=== PATIENT | male | born 1980 | race Hispanic/Latino ===

== ENCOUNTER 2022-04-11 15:52 | Emergency (ER) | payer BC ==
[~2022-04-11] VITALS: Ht 182.9 cm; Wt 133.8 kg
[2022-04-11 20:35] LABS: BASOPHILS % (AUTO) 0.4 % (0.0-5.0); EOSINOPHILS % (AUTO) 4.3 % (0.0-8.0); HEMATOCRIT 44.5 % (42-54); LYMPHOCYTES % (AUTO) 23.6 % (21.0-51.0); MEAN CORPUSCULAR HEMOGLOBIN 30.7 pg (27.0-33.0); MEAN CORPUSCULAR HGB CONC 36.4 g/dL (32.0-36.0); MEAN CORPUSCULAR VOLUME 84.3 fL (79-99); MONOCYTES % (AUTO) 7.3 % (3.0-13.0); NEUTROPHILS % (AUTO) 64.2 % (40.0-77.0); PLATELET COUNT (AUTO) 171 K/uL (130-400); RED BLOOD CELL COUNT(AUTO) 5.28 MIL/uL (4.50-6.20); RED CELL DISTRIBUTION WIDTH 12.7 % (11.0-15.5); WHITE BLOOD COUNT (AUTO) 9.7 K/uL (4.8-10.8)
[2022-04-11 20:46] LABS: CREATININE 1.6 mg/dL (0.5-1.5); POTASSIUM 3.9 mmol/L (3.5-5.1)
[2022-04-11 20:48] LABS: INR 0.94 (0.85-1.15); PROTHROMBIN TIME 10.3 SEC (9.6-11.6)
[2022-04-11 20:49] LABS: PARTIAL THROMBOPLASTIN TIME 28.8 SEC (26.3-35.5)
[2022-04-11 20:51] LABS: ALBUMIN 3.2 g/dL (3.5-5.0); TOTAL PROTEIN, SERUM 7.7 g/dL (6.0-8.3)
[2022-04-11 21:46] VITALS: BP 148/94
[2022-04-11 21:51] LABS: APPEARANCE,URINE CLEAR (CLEAR); BILIRUBIN,URINE NEGATIVE (NEGATIVE); COLOR,URINE YELLOW (YELLOW); GLUCOSE, URINE (UA) >=1000 mg/dL (NEGATIVE); KETONES,URINE NEGATIVE (NEGATIVE); LEUKOCYTE ESTERASE ,URINE NEGATIVE Leu/uL (NEGATIVE); NITRATE,URINE NEGATIVE (NEGATIVE); OCCULT BLOOD,URINE LARGE (NEGATIVE); PROTEIN,URINE 300 mg/dL (NEGATIVE); UROBILINOGEN,URINE 0.2 mg/dL (0.2-1.0)
[2022-04-11 21:53] LABS: BACTERIA,URINE RARE /HPF (None Seen); MUCUS,URINE RARE LPF (None Seen); OTHER CASTS, URINE 4 /LPF (None Seen)
== END 2022-04-11 21:47 | disposition home or self-care (01) ==
LOC: EDH 15:52
DX: R60.0 Localized edema (principal); E11.65 Type 2 diabetes mellitus with hyperglycemia; E86.0 Dehydration
CPT/HCPCS: 36415; 73080; 80053; 81001; 85025; 85610; 85730; 93971

== ENCOUNTER → 2022-06-20 | Outpatient (CLI) | payer BC | END | disposition home or self-care (01) | LOC: RAH 07:59 | PROVIDERS: ATTEND Nurse Practitioner Family | DX: M25.422 Effusion, left elbow (principal); M25.522 Pain in left elbow | CPT/HCPCS: 73221 ==

== ENCOUNTER 2025-05-19 10:06 | Emergency (ER) | payer BC ==
[~2025-05-19] VITALS: Ht 182.9 cm; Wt 129.0 kg
[2025-05-19 10:08] VITALS: TEMP 98.5
--- NOTE | 2025-05-19 10:15 | ERN ---
ED Note History of Present Illness Stated Complaint: LEFT HAND NUMBNESS X 2 DAYS Chief Complaint: Hand Problem/Injury Time Seen by MD: 10:10 Dictation: PATIENT IS A 44-YEAR-OLD MALE HERE WITH COMPLAINTS OF RIGHT HAND PAIN WITH NUMBNESS AND TINGLING ONSET SEVERAL DAYS PRIOR TO ARRIVAL. HE DENIES ANY TRAUMA HE DOES CURRENTLY HAVE AN [id number] BRACE IN PLACE. SAW HIS PRIMARY CARE DOCTOR, DR. RAH BARKLEY WHO REFERRED HIM TO THE EMERGENCY ROOM WITHOUT IMAGING FOR WORKUP. NEUROVASCULAR CMS INTACT. Allergies: Coded Allergies: No Known Allergies (Unverified Allergy, Unknown, 04/11/22) Past Medical History Past Medical History: Diabetes-Type II Surgical History: None Social History: ETOH RN Note Reviewed/Agreed w/PFSH: Yes Review of System Dictation CONSTITUTIONAL: NEGATIVE EXCEPT FOR HPI HEAD/FACE: NEGATIVE EXCEPT FOR HPI EENT: NEGATIVE EXCEPT FOR HPI RESPIRATORY: NEGATIVE EXCEPT FOR HPI GASTROINTESTINAL/ABDOMINAL: NEGATIVE EXCEPT FOR HPI GENITOURINARY: NEGATIVE EXCEPT FOR HPI MUSCULOSKELETAL: NEGATIVE EXCEPT FOR HPI RIGHT HAND PAIN WITH NUMBNESS AND TINGLING INTEGUMENTARY: NEGATIVE EXCEPT FOR HPI NEUROLOGICAL/PSYCH: NEGATIVE EXCEPT FOR HPI HEMATOLOGIC/LYMPHATIC: NEGATIVE EXCEPT FOR HPI ALL SYSTEMS NEGATIVE, EXCEPT NOTED ABOVE. 13 POINT REVIEW OF SYSTEMS ASSESSED AND ALL NEGATIVE EXCEPT FOR ABOVE. Initial Vital Sign VS Vital Signs Date Time Temp Pulse Resp B/P (MAP) Pulse Ox O2 Delivery O2 Flow Rate FiO2 05/19/25 10:08 98.4 92 16 158/91 99 Room Air 0 Physical Exam Dictation VITAL SIGNS REVIEWED GENERAL APPEARANCE: ALERT, ORIENTED X 3, MILD ACUTE DISTRESS, WELL DEVELOPED, NOURISHED. HEAD AND FACE: NON-TRAUMATIC. EYES: PERRL, PINK CONJUNCTIVAS, EYELID NO TRAUMA, ANTERIOR CHAMBER WITH ARCUS SENILIS. EARS: PINNAS INTACT AND NO SIGNS OF TRAUMA OR ERYTHEMA EAR CANALS CLEAR AND NO DISCHARGE TM NO ERYTHEMA NOSE: NO DISCHARGE, NO BLEEDING. OROPHARYNX: MOUTH NORMAL, TONGUE PINK, PHARYNX CLEAR,NO ERYTHEMA, TONSILS NO EXUDATES, NO ABSCESSES NOTED, MUCOUS MEMBRANE MOIST NECK: SUPPLE, NON-TENDER, NO THYROMEGALY, NO MASSES, NO JVD, NO BRUITS BREAST:DEFERRED CHEST:NO TENDERNESS, NO CREPITUS, NO PARADOXICAL MOVEMENT, NO RETRACTIONS LUNGS:CLEAR, WELL-VENTILATED, SYMMETRIC, NO RALES, NO WHEEZING, NO RHONCHI, NO STRIDOR, GOOD BREATH SOUNDS BILATERALLY HEART: REGULAR RATE, REGULAR RHYTHM, NO MURMUR, NO GALLOPS VASCULAR: NO PERIPHERAL EDEMA, ABDOMEN: SOFT, POSITIVE BOWEL SOUNDS, NONDISTENDED, NO GUARDING, NONTENDER, NO REBOUND, NO MASSES NO HEPATOMEGALY, NO SPLENOMEGALY, NO COLEY'S SIGN, NO HERNIAS. RECTAL: DEFERRED GENITAL: DEFERRED NEUROLOGICAL: NORMAL SPEECH, MOTOR FUNCTION INTACT, SENSORY FUNCTION INTACT MUSCULOSKELETAL: NECK NONTENDER, FULL RANGE OF MOTION, BACK NONTENDER, FULL RANGE OF MOTION, EXTREMITIES: TENDERNESS TO RIGHT HAND DIFFUSELY. SKIN IS INTACT NO ERYTHEMA NO SWELLING. BRACE IN PLACE [id number] SKIN: COLOR PINK, DRY, NO TURGOR, NO RASH, NO LACERATIONS, NO ABRASIONS, NO CONTUSIONS. LYMPHATIC: DEFERRED Results (Laboratory/Radiology) Laboratory/Radiology XAM: CR right Hand, 3 View. CLINICAL HISTORY: RIGHT HAND PAIN SWELLING FOR SEVERAL DAYS. NO TRAUMA COMPARISON: None provided. FINDINGS: BONES: No acute fracture or aggressive appearing osseous lesion. JOINTS: No evidence of dislocation. The joint spaces are normal. SOFT TISSUES: The soft tissues appear within normal limits. No radiopaque foreign body is seen. IMPRESSION: No acute pathology evident. No acute fracture or dislocation. /[facility] Reviewed?: Yes ED Course ED Course Orders Procedure Category Date Status Time Hand 3+Vws Rt RAD 05/19/25 Resulted 10:12 Ibuprofen 800 Mg Tab PHA 05/19/25 Complete (Motrin) 10:30 Current Medications Medications (Trade) Dose Ordered Sig/Marcelo Route PRN Reason Start Time Stop Time Status Last Admin Dose Admin Ibuprofen (moTRIN) 800 mg ONCE ONCE PO 05/19/25 10:30 05/19/25 10:31 DC Vital Signs Date Time Temp Pulse Resp B/P (MAP) Pulse Ox O2 Delivery O2 Flow Rate FiO2 05/19/25 10:08 98.4 92 16 158/91 99 Room Air 0 1128/RIGHT HAND X-RAY NEGATIVE PATIENT DISCHARGED HOME WITH IBUPROFEN TOLD TO CONTINUE HIS BRACE FOLLOW UP WITH DR. CHELSEY FARFAN, ORTHOPEDICS. Medical Decision Making MDM MEDICAL DECISION-MAKING BASED ON EMPIRIC TREATMENT FOR PAIN X-RAY OF RIGHT HAND NEGATIVE DIAGNOSIS WE WILL BE RIGHT HAND PAIN PATIENT TOLD TO CONTINUE HIS [id number] HAND BRACE TAKE IBUPROFEN NEEDED FOR PAIN NO WORK OR LIFTING WITH RIGHT HAND UNTIL CLEARED BY ORTHOPEDICS, CALL FOR AN APPOINTMENT DX & DISP Disposition: Discharge Departure Impression: Primary Impression: Arthralgia of hand, right Condition: Stable Scripts Ibuprofen (Ibuprofen 800 mg Tab) 800 Mg Tab 800 MG PO Q8H PRN for fever or pain, #30 TAB 0 Refills Prov: DEBRA PARISH 05/19/25 Additional Instructions: FOLLOW-UP WITH PRIMARY CARE PROVIDER IN 1 TO 2 DAYS. TAKE MEDICATIONS DIRECTED HERE IN THE EMERGENCY ROOM. OKAY TO CONTINUE HOME MEDICATIONS UNLESS OTHERWISE DISCUSSED DURING YOUR VISIT IN THE EMERGENCY ROOM TODAY. RETURN TO YOUR NEAREST EMERGENCY ROOM IF SYMPTOMS WORSEN OR IF THERE IS NO IMPROVEMENT. CALL 911 IF YOU NEED IMMEDIATE ASSISTANCE. TAKE TYLENOL OR MOTRIN [id number] NEEDED AND IF NO CONTRAINDICATIONS ARE PRESENT. INCREASE ORAL HYDRATION. A WOUND CULTURE OR URINE CULTURE WAS ORDERED HERE IN THE EMERGENCY ROOM DEPARTMENT PLEASE FOLLOW-UP WITH PRIMARY CARE PROVIDER AND ADVISE THEM TO GET REPEAT PORTS FROM OUR FACILITY. IF YOU HAD ANY [place]A WRAP/SPLINTS THAT WERE APPLIED HERE, PLEASE DO NOT REMOVE THEM UNTIL YOU SEE YOUR PRIMARY CARE OR SPECIALTY. TAKE IBUPROFEN EVERY 8 HOURS WITH FOOD FOR THE NEXT TWO DAYS. CONTINUE WITH THE YOUR HAND BRACE UNTIL CLEARED BY ORTHOPEDICS, CALL FOR AN APPOINTMENT TODAY. NO LIFTING OR WORK WITH RIGHT HAND UNTIL CLEARED BY YOUR ORTHOPEDIC SURGEON. Referrals: RAH BARKLEY (PCP) CHELSEY FARFAN MD Time of Disposition: 11:27 I have reviewed the case, and I agree with, Diagnosis and Plan DEBRA PARISH May 19, 2025 10:15
--- NOTE | 2025-05-19 10:59 | HMCIMG ---
EXAM: CR right Hand, 3 View. CLINICAL HISTORY: RIGHT HAND PAIN SWELLING FOR SEVERAL DAYS. NO TRAUMA COMPARISON: None provided. FINDINGS: BONES: No acute fracture or aggressive appearing osseous lesion. JOINTS: No evidence of dislocation. The joint spaces are normal. SOFT TISSUES: The soft tissues appear within normal limits. No radiopaque foreign body is seen. IMPRESSION: No acute pathology evident. No acute fracture or dislocation. /[place]
[2025-05-19] MEDS ORDERED: IBUP-2077 PO (11:28)
[2025-05-19 12:45] VITALS: BP 158/84; PULSE 87; RESP 16; O2SAT 98
--- NOTE | 2025-05-19 12:51 | NUR ---
Pt refused ibuprofen, states he has CKD and would prefer tylenol. Will inform provider.
== END 2025-05-19 13:14 | disposition home or self-care (01) ==
LOC: EDH 10:06
DX: M25.541 Pain in joints of right hand (principal); E11.9 Type 2 diabetes mellitus without complications; X58.XXXA Exposure to other specified factors, initial encounter; Y93.89 Activity, other specified; Y92.89 Other specified places as the place of occurrence of the external cause; Y99.8 Other external cause status
CPT/HCPCS: 73130; 99283